=== PATIENT | female | born 1980 | race Caucasian/White ===

== ENCOUNTER → 2017-10-30 | Outpatient (CLI) | payer SELFPAY ==
[~2017-10-30] MED LIST: AMBI10TA PO; CLON.5 PO; DARV PO; IBUP-232 PO; ROBA750T3 PO
== END ==
LOC: HPND 09:34
PROVIDERS: ATTEND Obstetrics & Gynecology
DX: O09.521 Supervision of elderly multigravida, first trimester (principal); Z36.82 Encounter for antenatal screening for nuchal translucency; O99.341 Other mental disorders complicating pregnancy, first trimester
CPT/HCPCS: 36415; 76813

== ENCOUNTER → 2017-12-11 | Outpatient (CLI) | payer SELFPAY | LOC: HPND 09:49 | PROVIDERS: ATTEND Obstetrics & Gynecology | DX: O09.522 Supervision of elderly multigravida, second trimester (principal); O35.8XX0 Maternal care for other (suspected) fetal abnormality and damage, not applicable or unspecified | CPT/HCPCS: 36415; 76811 ==

== ENCOUNTER → 2018-01-08 | Outpatient (CLI) | payer MEDICAID, OTHER | LOC: HPND 09:45 | PROVIDERS: ATTEND Obstetrics & Gynecology | DX: O09.522 Supervision of elderly multigravida, second trimester (principal); O35.8XX0 Maternal care for other (suspected) fetal abnormality and damage, not applicable or unspecified; O99.322 Drug use complicating pregnancy, second trimester; O36.5120 Maternal care for known or suspected placental insufficiency, second trimester, not applicable or unspecified | CPT/HCPCS: 76816; 76825; 76827; 93325 ==

== ENCOUNTER → 2018-02-10 | Outpatient (CLI) | payer OTHER | LOC: HPND 09:58 | PROVIDERS: ATTEND Obstetrics & Gynecology | DX: O09.523 Supervision of elderly multigravida, third trimester (principal); O36.5130 Maternal care for known or suspected placental insufficiency, third trimester, not applicable or unspecified | CPT/HCPCS: 76816 ==

== ENCOUNTER 2018-04-29 05:25 | Inpatient (IN) ==
[2018-04-29] MEDS ORDERED: Citric Acid/Sodium Citrate Liq 30 ML UDC PO SCH (05:45)
[2018-04-29] MEDS ORDERED: ceFAZolin Inj 2,000 MG in Sodium Chlor 0.9% Inj 80 ML IV.SIG SCH (06:00)
[2018-04-29 06:46] LABS: Baso % (Auto) 0.3 % (0.0-2.0); Eos # (Auto) 0.1 th/mm3 (0.0-0.4); Eos % (Auto) 1.1 % (0.0-4.0); Hematocrit 31.6 % (35.0-46.0); Hemoglobin 10.4 gm/dL (11.6-15.3); Lymph # (Auto) 2.8 th/mm3 (1.0-4.8); Lymph % (Auto) 25.9 % (9.0-44.0); Mean Corpuscular Hemoglobin 29.2 pg (27.0-34.0); Mean Corpuscular Volume 88.5 fL (80.0-100.0); Mean Platelet Volume 8.2 fL (7.0-11.0); Mono # (Auto) 0.7 th/mm3 (0.0-0.9); Mono % (Auto) 6.6 % (0.0-8.0); Neut # (Auto) 7.2 th/mm3 (1.8-7.7); Neut % (Auto) 66.1 % (16.0-70.0); Platelet Count 282 th/mm3 (150-450); Red Blood Count 3.57 mil/mm3 (4.00-5.30); Red Cell Distribution Width 13.6 % (11.6-17.2); White Blood Count 10.9 th/mm3 (4.0-11.0)
[2018-04-29 07:06] LABS: Amphetamine Screen,Urine Neg (Neg); Barbiturate Screen,Urine Neg (Neg); Cannabinoid Screen,Urine Neg (Neg); Cocaine Screen,Urine Neg (Neg)
[2018-04-29 07:07] LABS: Opiate Screen,Urine Neg (Neg)
[2018-04-29 07:09] LABS: Bacteria,Urine Occasional /hpf; Bilirubin,Urine Negative (Negative); Clarity,Urine Cloudy (Clear); Color,Urine Yellow (Yellw/Straw); Glucose,Urine (UA) Negative (Negative); Leukocyte Esterase,Urine Large (Negative); Nitrite,Urine Negative (Negative); Specific Gravity,Urine 1.013 (1.002-1.035); Squamous Epithelial Cell,Urine 6 /hpf (0-5)
[2018-04-29] MEDS ORDERED: Morphine Sulfate PF Inj 5 MG/10 ML Ampul ONE (07:24)
[2018-04-29] MEDS ORDERED: Ibuprofen 600 MG Tablet PO PRN (08:49)
[2018-04-29] MEDS ORDERED: Oxytocin 30 Units/500ml Premix 30 UNITS/500 ML BAG IV.SIG ONE (08:49)
--- NOTE | 2018-04-29 08:56 | P.OBDELI ---
Procedure Note - Pre Op Diagnosis (1) with 39 completed weeks gestation (2) Breech presentation (3) Previous delivery affecting - Post Op Diagnosis (1) Delivered by delivery following previous delivery Performed by: Africa Watts MD Procedure: Repeat Low Transverse Section, Other (excision of two large moles on mons) Indication for Delivery: malposition Informed Consent Obtained: For anesthesia, For procedure Confirmed Correct: Patient, Procedure, Site, Time-out taken Anesthesia: Spinal Medication Prior to Procedure: As documented in eMAR Monitoring During Procedure: Blood pressure monitoring, equipment monitor phototypesetting, doppler, Pulse oximetry Urinary Catheter: Inserted using sterile technique, To dependent drainage Sterile Preparation: Duraprep, In usual fashion Position: Supine with wedge to right side - Operative Features Skin Incision: Pfannenstiel Presentation: Breech Status of Infant: Viable, Cord blood, Nursery present Placenta Delivered: Intact Medications: Antibiotics, Oxytocin Estimated blood loss (mL): 500 Procedure Tolerated: Well Maternal Condition: Stable Baby Condition: Stable - : Male (apgars 8 and 9 left sacrum anterior presentation low lying anterior placenta)
[2018-04-29] MEDS ORDERED: Measles/Mumps/Rubella Vaccine Inj 0.5 ML Vial SQ ONE (09:30)
--- NOTE | 2018-04-29 09:40 | MP ---
cc: Africa Watts MD DATE OF OPERATION: 04/29/2018 PREOPERATIVE DIAGNOSES: A 39-week , breech presentation, prior section, macrosomia, and then incidentally, 2 moles on mons. POSTOPERATIVE DIAGNOSES: A 39-week , breech presentation, prior section, macrosomia, and then incidentally 2 moles on mons. Delivered, moles excised. PROCEDURES: Repeat low transverse segment section and excision of 2 moles on mons. ANESTHESIA: Spinal, Duramorph. SURGEON: Africa Watts MD [employer] REMOVAL SUPERVISOR: Labor and delivery staff. FINDINGS: A living male from left sacrum anterior, weighing 8 pounds 10 ounces with Apgars of 8 at 1 and 9 at 5. Placenta was low-lying anterior, delivered intact with a 3-vessel cord, and donated to [facility]. Two fairly moles that were verrucous on the right side of the mons were excised, and the area was closed with interrupted. ESTIMATED BLOOD LOSS: 500 mL. COUNTS: Sponge, instrument, and needle count were correct, and mom and baby are doing well. DESCRIPTION OF PROCEDURE: The patient was identified as Dolores Moffett. Her permit was reviewed. She was taken to the OR, where she was placed on the operating room table and had a spinal with Duramorph. She was then placed in dorsal supine with the weight off the vena cava. She had a Pineda catheter placed. Sequential stockings were on. She had received 2 grams of Ancef. She was prepped and draped in the usual sterile fashion. Adequate analgesia was assured. A timeout was done with all in attention, and then her previous incision was removed, and the Bovie was used to cut through to the fascia. The fascia was incised with Prieto's and dissected off the rectus muscle. Rectus muscle was in the midline. The parietal peritoneum was entered. It was necessary to dissect the bladder off the lower uterine segment, and then an incision was made into the intrauterine cavity, which was extended vertically in a blunt fashion. The infant was in left sacrum anterior and moved to sacrum posterior, and then delivered classic Pinard maneuvers. The cord was clamped and cut x2 after a 45-second delay, and the infant was handed off to the neonatology team in attending. Apgars were 8 at 1 and 9 at 5. The placenta was removed manually intact with a 3-vessel cord and donated to [facility]. The uterus was cleaned thoroughly, exteriorized, and closed with chromic in a running interlocking fashion with a second horizontal imbricating suture placed. It was replaced in the peritoneal cavity and copious irrigation was used, and the incision checked carefully for hemostasis. Tubes and ovaries had been evaluated prior to replacement of the uterus back into the peritoneal cavity. The rectus muscle was gently approximated with a running stitch. Then, the rectus fascia was closed with #1 Vicryl in a running non-interlocking suture. 3-0 plain was used to obliterate the space in the subcutaneous tissue, and then 4-0 Monocryl on a Miguel A needle was used to close the incision. Steri-Strips were then applied with a Primapore, and a little pressure dressing. The two right moles were then elliptically excised along Sarah lines, and the incisions closed with interrupted. These were then covered with Dermabond. Urine was clear and copious. She tolerated the procedure well, and she was taken to the recovery room in stable condition. Africa Watts MD PPC/ , 09:01 AM , 09:09 AM
[2018-04-29] MEDS ORDERED: Oxytocin 30 Units/500ml Premix 30 UNITS/500 ML BAG ONE (10:11)
[2018-04-29] MEDS ORDERED: Morphine Sulfate Inj 2 MG/ML Vial ONE (10:30)
[2018-04-29] MEDS ORDERED: Naloxone Inj 0.4 MG/ML Vial IV.PUSH PRN (11:43)
[2018-04-29] MEDS ORDERED: Phenylephrine/NS 1000 MCG/10ML Syringe IV.PUSH ONE (12:00)
[2018-04-29] MEDS ORDERED: Ketorolac Inj 30 MG/ML (IVP) Vial IV.PUSH ONE (12:00)
[2018-04-29] MEDS ORDERED: Oxytocin 30 Units/500ml Premix 30 UNITS/500 ML BAG IV.SIG PRN (13:49)
[2018-04-29] MEDS: Ibuprofen 600 MG Tablet PO PRN (18:04)
[2018-04-29] MEDS ORDERED: Zolpidem Tartrate 5 MG Tablet PO PRN (21:00)
[2018-04-30] MEDS: Senna/Docusate Sodium 8.6/50 MG Tablet PO PRN ×2 (00:32→13:12)
[2018-04-30] MEDS: Ibuprofen 600 MG Tablet PO PRN ×3 (09:00→21:23)
--- NOTE | 2018-04-30 10:54 | P.PNOB ---
Subjective Post op day: 1 Interval history: POD#1, doing ok, pain controlled, ambulatory,tolerating diet,voiding. Objective Vital Signs/I&O: Vital Signs 04/29/18 11:15 04/29/18 18:00 04/29/18 20:00 Temperature 99.1 F 98.3 F 98.3 F Pulse Rate 60 71 67 Respiratory Rate 18 Blood Pressure 133/58 L 117/73 111/64 04/29/18 23:52 04/30/18 04:00 04/30/18 08:00 Temperature 98.3 F 98.4 F 98.1 F Pulse Rate 86 84 84 Respiratory Rate 18 Blood Pressure 142/71 H 117/64 100/70 Intake & Output 04/29/18 04/30/18 04/30/18 18:59 06:59 18:59 Intake Total 1000 / 1000 Balance 1000 / 1000 Intake: IV 1000 / 1000 LR 1000 mL Inj 1,000 ML @ 150 1000 / 1000 mls/hr IV.CONT .Q6H40M [facility] Rx#: [id number] Result Diagrams: 04/29/18 05:58 Objective Remarks: GENERAL: Well-nourished, well-developed patient. CARDIOVASCULAR: Regular rate and rhythm without murmurs, gallops, or rubs. RESPIRATORY: Breath sounds equal bilaterally. No accessory muscle use. ABDOMEN/GI: Abdomen soft, non-tender, bowel sounds present. Incision: Clean, dry and intact. Fundus: Firm, non-tender at umbilicus. GENITOURINARY: Light to moderate bleeding. EXTREMITIES: No cyanosis or edema, non-tender, without signs of DVT. Medications and IVs: Active Medications Citric Acid/Sodium Citrate (Sodium Citrate/Citric Acid Liq) 30 ml PO [employer] [facility] Stop: 05/03/18 05:44 Last Admin: 04/29/18 07:03 Dose: 30 ml Diphenhydramine HCl (Benadryl) 50 mg PO Q6H PRN PRN Reason: MILD TO MODERATE ITCHING Stop: 04/30/18 11:42 Diphenhydramine HCl (Benadryl Inj) 25 mg IV.PUSH Q6H PRN PRN Reason: MILD TO MODERATE ITCHING Stop: 04/30/18 11:42 Diphtheria/Pertussis/Tetanus Vacc (Boostrix Vaccine Inj) 0.5 ml IM .ONCE ONE Stop: 04/30/18 16:01 Cefazolin Sodium 2,000 mg/ (Sodium Chloride) 100 mls @ 200 mls/hr IV.SIG [employer] [facility] Stop: 05/03/18 05:59 Lactated Ringer's (Lr 1000 Ml Inj) 1,000 mls @ 150 mls/hr IV.CONT .Q6H40M [facility] Last Admin: 04/29/18 18:06 Dose: 150 mls/hr Oxytocin (Pitocin 30 Units/Ns 500 Ml Premix) 30 units in 500 mls @ 100 mls/hr IV.SIG PRN PRN PRN Reason: Heavy bleeding Stop: 04/30/18 13:48 Ibuprofen (Motrin) 600 mg PO Q6HR PRN PRN Reason: cramping Last Admin: 04/30/18 09:00 Dose: 600 mg Ketorolac Tromethamine (Toradol Inj) 30 mg IM Q6H PRN PRN Reason: SEE LABEL COMMENTS Stop: 05/04/18 09:20 Last Admin: 04/30/18 00:32 Dose: 30 mg Miscellaneous Information ([facility] Nursing Information) 1 each OTHER UNSCH PRN PRN Reason: SEE LABEL COMMENTS Stop: 04/30/18 11:42 Miscellaneous Information ([facility] Nursing Information) 1 each OTHER UNSCH PRN PRN Reason: SEE LABEL COMMENTS Stop: 04/30/18 11:42 Naloxone HCl (Narcan Inj) 0.4 mg IV.PUSH UNSCH PRN PRN Reason: SEE LABEL COMMENTS Stop: 04/30/18 11:42 Ondansetron HCl (Zofran Inj) 4 mg IV.PUSH Q6H PRN PRN Reason: NAUSEA OR VOMITING Oxycodone/Acetaminophen (Percocet 5/325 Mg) 2 tab PO Q4H PRN PRN Reason: PAIN SCALE 6 TO 10 Last Admin: 04/30/18 09:00 Dose: 2 tab Oxycodone/Acetaminophen (Percocet 5/325 Mg) 1 tab PO Q4H PRN PRN Reason: PAIN SCALE 3 TO 5 Last Admin: 04/29/18 18:05 Dose: 1 tab Senna/Docusate Sodium (Elidia-Colace) 2 tab PO Q12H PRN PRN Reason: CONSTIPATION Last Admin: 04/30/18 00:32 Dose: 2 tab Simethicone (Mylicon Chew) 80 mg PO QID PRN PRN Reason: FLATULENCE Sodium Chloride (Ns Flush) 2 ml IV.FLUSH BID MELISA Last Admin: 04/29/18 10:13 Dose: Not Given Sodium Chloride (Ns Flush) 2 ml IV.FLUSH PRN PRN PRN Reason: FLUSH AFTER USING IV ACCESS Zolpidem Tartrate (Ambien) 5 mg PO HS PRN PRN Reason: INSOMNIA Assessment and Plan - Plan POD#1, stable, Desires circ. Discharge Planning: POD#2-3 - Attending Attestation seen by me
[2018-04-30] MEDS ORDERED: Diphtheria/Tetanus/Pertussis Vaccine Inj 0.5 ML Syringe IM ONE (16:00)
[2018-04-30] MEDS ORDERED: Measles/Mumps/Rubella Vaccine Inj 0.5 ML Vial SQ ONE (16:00)
[2018-05-01] MEDS: Ibuprofen 600 MG Tablet PO PRN ×4 (03:16→22:37)
[2018-05-01] MEDS: Senna/Docusate Sodium 8.6/50 MG Tablet PO PRN (09:36)
[2018-05-01] MEDS: Simethicone 80 MG Chew Tablet PO PRN ×2 (09:36→20:14)
--- NOTE | 2018-05-01 09:53 | P.OBGPN ---
look pt up in PDMP, reviewed report
[2018-05-01] MEDS ORDERED: Polyethylene Glycol 3350 17 GM Packet PO PRN (17:34)
--- NOTE | 2018-05-01 18:12 | P.PNOB ---
Subjective Post op day: 2 Interval history: Pt seen by Dr. Watts this am. Objective Vital Signs/I&O: Vital Signs 04/30/18 20:00 05/01/18 04:05 05/01/18 06:26 Temperature 97.8 F Pulse Rate 82 Respiratory Rate 17 20 4 L Blood Pressure 117/67 05/01/18 08:00 Temperature 98.1 F Pulse Rate 88 Respiratory Rate 20 Blood Pressure 136/76 Result Diagrams: 04/29/18 05:58 Objective Remarks: GENERAL: Well-nourished, well-developed patient. CARDIOVASCULAR: Regular rate and rhythm without murmurs, gallops, or rubs. RESPIRATORY: Breath sounds equal bilaterally. No accessory muscle use. ABDOMEN/GI: Abdomen soft, non-tender, bowel sounds present. Incision: Clean, dry and intact, sutures. Two moles removed during cd, c/d/ i with suture in place Fundus: Firm, non-tender at umbilicus. GENITOURINARY: Light to moderate bleeding. EXTREMITIES: No cyanosis or edema, non-tender, without signs of DVT. Medications and IVs: Active Medications Citric Acid/Sodium Citrate (Sodium Citrate/Citric Acid Liq) 30 ml PO [employer]ITLES [facility] Stop: 05/03/18 05:44 Last Admin: 04/29/18 07:03 Dose: 30 ml Cefazolin Sodium 2,000 mg/ (Sodium Chloride) 100 mls @ 200 mls/hr IV.SIG [employer]ITLES [facility] Stop: 05/03/18 05:59 Lactated Ringer's (Lr 1000 Ml Inj) 1,000 mls @ 150 mls/hr IV.CONT .Q6H40M [facility] Last Admin: 05/01/18 18:04 Dose: Not Given Ibuprofen (Motrin) 600 mg PO Q6HR PRN PRN Reason: cramping Last Admin: 05/01/18 15:37 Dose: 600 mg Ketorolac Tromethamine (Toradol Inj) 30 mg IM Q6H PRN PRN Reason: SEE LABEL COMMENTS Stop: 05/04/18 09:20 Last Admin: 04/30/18 00:32 Dose: 30 mg Ondansetron HCl (Zofran Inj) 4 mg IV.PUSH Q6H PRN PRN Reason: NAUSEA OR VOMITING Oxycodone/Acetaminophen (Percocet 5/325 Mg) 2 tab PO Q4H PRN PRN Reason: PAIN SCALE 6 TO 10 Last Admin: 05/01/18 14:57 Dose: 2 tab Oxycodone/Acetaminophen (Percocet 5/325 Mg) 1 tab PO Q4H PRN PRN Reason: PAIN SCALE 3 TO 5 Last Admin: 04/29/18 18:05 Dose: 1 tab Polyethylene Glycol (Miralax) 17 gm PO DAILY PRN PRN Reason: MILD CONSTIPATION Senna/Docusate Sodium (Elidia-Colace) 2 tab PO Q12H PRN PRN Reason: CONSTIPATION Last Admin: 05/01/18 09:36 Dose: 2 tab Simethicone (Mylicon Chew) 80 mg PO QID PRN PRN Reason: FLATULENCE Last Admin: 05/01/18 09:36 Dose: 80 mg Sodium Chloride (Ns Flush) 2 ml IV.FLUSH BID MELISA Last Admin: 05/01/18 09:00 Dose: Not Given Sodium Chloride (Ns Flush) 2 ml IV.FLUSH PRN PRN PRN Reason: FLUSH AFTER USING IV ACCESS Zolpidem Tartrate (Ambien) 5 mg PO HS PRN PRN Reason: INSOMNIA Assessment and Plan - Plan POD#2, stable,Continue supportive care. Cont postop pain management. Will d/c on POD 3 Discharge Planning: POD#3
[2018-05-02] MEDS: Senna/Docusate Sodium 8.6/50 MG Tablet PO PRN (03:00)
[2018-05-02 05:13] VITALS: RESP 20
[2018-05-02] MEDS: Ibuprofen 600 MG Tablet PO PRN (05:54)
--- NOTE | 2018-05-02 08:07 | P.PNOB ---
Subjective Post op day: 3 Interval history: doing well moderate pain and using percocet 1-2 every 6 hours nursing well less anxious no longer distended rash gone Objective Vital Signs/I&O: Vital Signs 05/01/18 20:00 05/02/18 05:12 Temperature 98.3 F Pulse Rate 83 Respiratory Rate 18 20 Blood Pressure 152/74 H Result Diagrams: 04/29/18 05:58 Objective Remarks: GENERAL: Well-nourished, well-developed patient. CARDIOVASCULAR: Regular rate and rhythm without murmurs, gallops, or rubs. RESPIRATORY: Breath sounds equal bilaterally. No accessory muscle use. ABDOMEN/GI: Abdomen soft, non-tender, bowel sounds present. Incision: Clean, dry and intact. Fundus: Firm, non-tender at umbilicus. GENITOURINARY: Light to moderate bleeding. EXTREMITIES: No cyanosis or edema, non-tender, without signs of DVT. incision clean and dry some steri strips removed mole excision sites healing Medications and IVs: Active Medications Citric Acid/Sodium Citrate (Sodium Citrate/Citric Acid Liq) 30 ml PO [employer] [facility] Stop: 05/03/18 05:44 Last Admin: 04/29/18 07:03 Dose: 30 ml Cefazolin Sodium 2,000 mg/ (Sodium Chloride) 100 mls @ 200 mls/hr IV.SIG [employer] [facility] Stop: 05/03/18 05:59 Lactated Ringer's (Lr 1000 Ml Inj) 1,000 mls @ 150 mls/hr IV.CONT .Q6H40M [facility] Last Admin: 05/02/18 02:57 Dose: Not Given Ibuprofen (Motrin) 600 mg PO Q6HR PRN PRN Reason: cramping Last Admin: 05/02/18 05:54 Dose: 600 mg Ketorolac Tromethamine (Toradol Inj) 30 mg IM Q6H PRN PRN Reason: SEE LABEL COMMENTS Stop: 05/04/18 09:20 Last Admin: 04/30/18 00:32 Dose: 30 mg Ondansetron HCl (Zofran Inj) 4 mg IV.PUSH Q6H PRN PRN Reason: NAUSEA OR VOMITING Oxycodone/Acetaminophen (Percocet 5/325 Mg) 2 tab PO Q4H PRN PRN Reason: PAIN SCALE 6 TO 10 Last Admin: 05/02/18 07:50 Dose: 2 tab Oxycodone/Acetaminophen (Percocet 5/325 Mg) 1 tab PO Q4H PRN PRN Reason: PAIN SCALE 3 TO 5 Last Admin: 04/29/18 18:05 Dose: 1 tab Polyethylene Glycol (Miralax) 17 gm PO DAILY PRN PRN Reason: MILD CONSTIPATION Last Admin: 05/01/18 22:38 Dose: 17 gm Senna/Docusate Sodium (Elidia-Colace) 2 tab PO Q12H PRN PRN Reason: CONSTIPATION Last Admin: 05/02/18 03:00 Dose: 2 tab Simethicone (Mylicon Chew) 80 mg PO QID PRN PRN Reason: FLATULENCE Last Admin: 05/01/18 20:14 Dose: 80 mg Sodium Chloride (Ns Flush) 2 ml IV.FLUSH BID MELISA Last Admin: 05/01/18 20:14 Dose: Not Given Sodium Chloride (Ns Flush) 2 ml IV.FLUSH PRN PRN PRN Reason: FLUSH AFTER USING IV ACCESS Zolpidem Tartrate (Ambien) 5 mg PO HS PRN PRN Reason: INSOMNIA Assessment and Plan - Diagnosis (1) Delivered by delivery following previous delivery Status: Acute - Plan POD#2, stable,Continue supportive care. Cont postop pain management. Will d/c on POD 3 Discharge Planning: POD#3 home today post circumcision RTO 1 weeks counseled on watching BP, bleeding and risks of DVT, pre eclampsia, PPD
[2018-05-02 09:29] VITALS: BP 114/71; PULSE 79; TEMP 98.2
== END 2018-05-02 11:45 | disposition home or self-care (01) ==
LOC: H2E 05:25 → H1EA 11:11
PROVIDERS: ADMIT Obstetrics & Gynecology; ATTEND Obstetrics & Gynecology